=== PATIENT | male | born 1975 | race Caucasian/White ===

== ENCOUNTER 2016-07-09 12:28 | Emergency (ER) | payer SELFPAY ==
--- NOTE | 2016-07-09 14:18 | DIAGNOSTIC IMAGING REPORT ---
PROCEDURE: XR CHEST 1 VIEW INDICATION: CHEST PAIN TECHNIQUE: Portable AP view 01:25 p.m. COMPARISON: None. FINDINGS: Lungs are clear. Heart and mediastinum are normal. Thorax is normal. IMPRESSION: 1. Negative chest.
--- NOTE | 2016-07-09 14:46 | ED NURSING NOTES ---
Clinical Report - Nurses [facility] [address] [place] [address] 07/09/2016 12:29 Patient: LITZY SAUNDERS TRIAGE Triage time 1236 PM. Acuity: LEVEL 2. Chief Complaint: CHEST PAIN and DISCOMFORT and LEFT ARM PAIN. Alert. No acute distress. SEPSIS SCREEN: Sepsis Screen. Negative (no infection suspected/documented). --12:43 Marcie Simmons R.N. 12:33 07/09/16. BP: 137/92 (regular adult cuff) taken on the left arm, via an automated monitor, while sitting. HR: 106. RR: 16. O2 saturation: 98%. Pain level now: 10/06. --12:43 Marcie Simmons R.N. Weight: 106.5 kg stated. Height/Length: 76 inches Per Patient. BMI: 28.6. --12:33 Marcie Simmons R.N. Medications Marajuana daily. --12:35 Marcie Simmons R.N. Medication/allergy information source: the patient. --12:43 Marcie Simmons R.N. Allergies NKDA. --12:35 Marcie Simmons R.N. History Arrived by private vehicle. Primary physician (none). ( Pt states unsure of having CP, states initiated last evening, with feeling nausea, no vomiting, admits having burping, the CP "which relieves it" denies SOB. Pt did decided to take ASA "just in case" Here for evaluation). ( Pt also states of having some numbness on the Left arm, "might be due to snow boarding last week"). He has had nausea. No difficulty breathing, sweating episodes, vomiting, fever or cough. 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 PAST MEDICAL HX: Immunizations: up-to-date. SOCIAL HX: Never smoker. History of heavy drug use: marijuana. Recently used drugs today. No alcohol use. No infectious disease exposure. SELF HARM ASSESSMENT: A self harm assessment was performed. The patient answered "no" to the question "Do you have thoughts of harming or killing yourself?" and "Have you recently had thoughts about harming or killing others?". FALL RISK ASSESSMENT: Fall risk assessment completed. No fall risk identified. NUTRITIONAL RISK ASSESSMENT: The nutritional risk assessment revealed no deficiencies. FUNCTIONAL ASSESSMENT: Functional assessment: no impairments noted. LEARNING NEEDS ASSESSMENT: The learning needs assessment revealed no barriers. SKIN INTEGRITY ASSESSMENT: Skin integrity risk assessment completed. No skin integrity risk identified. --12:43 Marcie Simmons R.N. ADDITIONAL SURGERIES: no known surgeries. Interventions ID band on patient. --12:43 Marcie Simmons R.N. PHYSICAL ASSESSMENT Ambulatory to room. GENERAL / NEURO / PSYCH: Alert. Oriented X 4. Appears in no acute distress. HEENT: Mucous membranes are pink. RESPIRATORY: Respirations not labored. Chest nontender. Breath sounds within normal limits. CVS: Normal sinus rhythm noted. Heart sounds within normal limits. Pulses within normal limits. Capillary refill less than 2 seconds. GI / : Abdomen soft and nontender. EXTREMITIES: No lower extremity edema. SKIN: Skin is warm and dry. Normal skin turgor. --12:45 Marcie Simmons R.N. NURSING PROGRESS NOTES Cardiac rhythm: normal sinus rhythm. The initial plan of care for this patient has been created This plan of care was discussed with the patient. monitoring analyst, pulse oximeter and NIBP monitor placed on patient. Patient gowned. Two patient identifiers checked. Call light placed in reach. Side rails up x 1. Bed placed in lowest position. Brakes of bed on. Patient ready for evaluation- ED physician notified. --12:46 Marcie Simmons R.N. 12:45 07/09/16. BP: 147/85. HR: 101. RR: 15. O2 saturation: 97%. Temp: 98.1 F. Pain level now: 10/06. --12:46 Marcie Simmons R.N. EKG time: (1238 PM). EKG was performed by a tech and shown to the ED physician. Patient ID band checked for patient name, birthdate and medical record number: patient confirmed. Blood samples drawn by nurse per protocol ; labeled in presence of the patient and sent to lab: mignon tejada. --12:47 Marcie Simmons R.N. 12:42 07/09/2016 Site #1 started via IV in the left antecubital space with an 20g angiocath; one attempt. Blood drawn: rainbow set. Labeled in the presence of the patient. Saline lock flushed. --12:47 Marcie Simmons R.N. EKG time: (12:40 PM). EKG was performed by a tech and shown to the ED physician. --13:02 Michele Dodson Cardiac rhythm: normal sinus rhythm. monitoring analyst, pulse oximeter and NIBP monitor placed on patient. Reassurance given. GENERAL / NEURO / PSYCH: The patient reports anxiety. RESPIRATORY: Denies difficulty breathing. CVS: The patient reports left-sided chest pain is still present but improving and currently mild in severity and described as dull and radiating to the left arm. Denies nausea, sweating or shortness of breath. Call light placed in reach. --13:19 Marcie Simmons R.N. 13:15 07/09/16. BP: 126/66. HR: 77 (regular and normal rate). RR: 15. O2 saturation: 97% on room air. Pain level now: 0/10. --13:19 Marcie Simmons R.N. 13:53 07/09/2016 GI Cocktail * PO 30ml monisha arthur 15 --13:53 Marcie Simmons R.N. 14:30 07/09/16. BP: 117/72 (large adult cuff) taken on the left arm, via an automated monitor, while lying. HR: 72. RR: 15. O2 saturation: 100%. Temp: 98.1 F (oral). Pain level now: 0/10. --14:32 Marcie Simmons R.N. late entry - 14:00 PM. Cardiac rhythm: normal sinus rhythm. monitoring analyst, pulse oximeter and NIBP monitor placed on patient. Reassurance given. Reassessment after medication administered. He has had no adverse reaction. Overall patient status is improved- he states feels better. RESPIRATORY: Denies difficulty breathing. CVS: Denies chest pain. --14:32 Marcie Simmons R.N. 14:17 07/09/2016 GI Cocktail PO Response: no adverse reaction symptoms have improved the patient feels better. --14:32 Marcie Simmons R.N. late entry -15:12. ( Homeostasis at IV site on DC). --15:18 Manan Overton R.N. DISPOSITION / DISCHARGE 14:50 07/09/2016 Site #1 removed upon discharge. Catheter intact. Manual pressure and bandaid applied. --14:50 Marcie Simmons R.N. Cardiac rhythm: normal sinus rhythm. Condition at departure: improved and stable. The goals identified in the patient's plan of care were met. FALL RISK ASSESSMENT: Fall risk assessment completed. No fall risk identified. TRUDI COMA SCORE: [place] Coma Scale: 15- eyes open spontaneously (4); best verbal response- oriented x 4 (5); best motor response- obeys commands (6). --14:52 Marcie Simmons R.N. 14:50 07/09/16. BP: 118/91 (large adult cuff) taken on the left arm, via an automated monitor, while sitting. HR: 72 (regular). RR: 15. O2 saturation: 100%. Temp: 98.3 F (oral). Pain level now: 0/10. --14:52 Marcie Simmons R.N. 15:12 07/09/16. Departure time: 15:12. --15:12 Manan Overton R.N. Locked/Released at 07/09/2016 15:18 by Manan Overton R.N.
--- NOTE | 2016-07-09 14:46 | ED ORDER SUMMARY ---
..... 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 per protocol) (Ack 12:48 EHassan R.N.) (13:13 EHassan R.N.) Chest 1V Urgent (12:48 07/09/2016 EHassan R.N. per protocol) (Ack 12:49 RKaruga) (13:13 EHassan R.N.) Cardiac Panel Stat (12:48 07/09/2016 EHassan R.N. per protocol) (Ack 12:48 EHassan R.N.) (13:13 EHassan R.N.) Pulse oximeter (12:48 07/09/2016 EHassan R.N. per protocol) (Ack 12:48 EHassan R.N.) (13:13 EHassan R.N.) EKG - ER Stat (12:48 07/09/2016 EHassan R.N. per protocol) (Ack 12:48 EHassan R.N.) (13:01 LTapper) NPO (12:48 07/09/2016 EHassan R.N. per protocol) (Ack 12:48 EHassan R.N.) (13:13 EHassan R.N.) MEDICATION ORDERS: GI Cocktail WHITE PO 30 mL with Lidocaine Viscous Mouth/Throat 15 mL, Maalox Plus Oral 15 mL (13:37 07/09/2016 Jazmine Ryan) (13:53 EHassan R.N.) IV FLUIDS: IV Saline Lock (12:48 07/09/2016 EHassan R.N. per protocol) (13:14 EHassan R.N.) ORDER SHEET NOTES: [Electronically signed by Napoleon Last Dr. (14:55 07/09/2016)] [Electronically signed by Manan Overton R.N. (15:07/09/2016)] [Electronically locked/signed by Manan Overton R.N. (15:07/09/2016)]
--- NOTE | 2016-07-09 14:46 | ED NURSING NOTES ---
Clinical Report - Nurses [facility] [address] [place] [address] 07/09/2016 12:29 Patient: LITZY SAUNDERS TRIAGE Triage time 1236 PM. Acuity: LEVEL 2. Chief Complaint: CHEST PAIN and DISCOMFORT and LEFT ARM PAIN. Alert. No acute distress. SEPSIS SCREEN: Sepsis Screen. Negative (no infection suspected/documented). --12:43 Marcie Simmons R.N. 12:33 07/09/16. BP: 137/92 (regular adult cuff) taken on the left arm, via an automated monitor, while sitting. HR: 106. RR: 16. O2 saturation: 98%. Pain level now: 10/06. --12:43 Marcie Simmons R.N. Weight: 106.5 kg stated. Height/Length: 76 inches Per Patient. BMI: 28.6. --12:33 Marcie Simmons R.N. Medications Marajuana daily. --12:35 Marcie Simmons R.N. Medication/allergy information source: the patient. --12:43 Marcie Simmons R.N. Allergies NKDA. --12:35 Marcie Simmons R.N. History Arrived by private vehicle. Primary physician (none). ( Pt states unsure of having CP, states initiated last evening, with feeling nausea, no vomiting, admits having burping, the CP "which relieves it" denies SOB. Pt did decided to take ASA "just in case" Here for evaluation). ( Pt also states of having some numbness on the Left arm, "might be due to snow boarding last week"). He has had nausea. No difficulty breathing, sweating episodes, vomiting, fever or cough. 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 PAST MEDICAL HX: Immunizations: up-to-date. SOCIAL HX: Never smoker. History of heavy drug use: marijuana. Recently used drugs today. No alcohol use. No infectious disease exposure. SELF HARM ASSESSMENT: A self harm assessment was performed. The patient answered "no" to the question "Do you have thoughts of harming or killing yourself?" and "Have you recently had thoughts about harming or killing others?". FALL RISK ASSESSMENT: Fall risk assessment completed. No fall risk identified. NUTRITIONAL RISK ASSESSMENT: The nutritional risk assessment revealed no deficiencies. FUNCTIONAL ASSESSMENT: Functional assessment: no impairments noted. LEARNING NEEDS ASSESSMENT: The learning needs assessment revealed no barriers. SKIN INTEGRITY ASSESSMENT: Skin integrity risk assessment completed. No skin integrity risk identified. --12:43 Marcie Simmons R.N. ADDITIONAL SURGERIES: no known surgeries. Interventions ID band on patient. --12:43 Marcie Simmons R.N. PHYSICAL ASSESSMENT Ambulatory to room. GENERAL / NEURO / PSYCH: Alert. Oriented X 4. Appears in no acute distress. HEENT: Mucous membranes are pink. RESPIRATORY: Respirations not labored. Chest nontender. Breath sounds within normal limits. CVS: Normal sinus rhythm noted. Heart sounds within normal limits. Pulses within normal limits. Capillary refill less than 2 seconds. GI / : Abdomen soft and nontender. EXTREMITIES: No lower extremity edema. SKIN: Skin is warm and dry. Normal skin turgor. --12:45 Marcie Simmons R.N. NURSING PROGRESS NOTES Cardiac rhythm: normal sinus rhythm. The initial plan of care for this patient has been created This plan of care was discussed with the patient. radiation monitor, pulse oximeter and NIBP monitor placed on patient. Patient gowned. Two patient identifiers checked. Call light placed in reach. Side rails up x 1. Bed placed in lowest position. Brakes of bed on. Patient ready for evaluation- ED physician notified. --12:46 Marcie Simmons R.N. 12:45 07/09/16. BP: 147/85. HR: 101. RR: 15. O2 saturation: 97%. Temp: 98.1 F. Pain level now: 10/06. --12:46 Marcie Simmons R.N. EKG time: (1238 PM). EKG was performed by a tech and shown to the ED physician. Patient ID band checked for patient name, birthdate and medical record number: patient confirmed. Blood samples drawn by nurse per protocol ; labeled in presence of the patient and sent to lab: mignon tejada. --12:47 Marcie Simmons R.N. 12:42 07/09/2016 Site #1 started via IV in the left antecubital space with an 20g angiocath; one attempt. Blood drawn: rainbow set. Labeled in the presence of the patient. Saline lock flushed. --12:47 Marcie Simmons R.N. EKG time: (12:40 PM). EKG was performed by a tech and shown to the ED physician. --13:02 Michele Dodson Cardiac rhythm: normal sinus rhythm. radiation monitor, pulse oximeter and NIBP monitor placed on patient. Reassurance given. GENERAL / NEURO / PSYCH: The patient reports anxiety. RESPIRATORY: Denies difficulty breathing. CVS: The patient reports left-sided chest pain is still present but improving and currently mild in severity and described as dull and radiating to the left arm. Denies nausea, sweating or shortness of breath. Call light placed in reach. --13:19 Marcie Simmons R.N. 13:15 07/09/16. BP: 126/66. HR: 77 (regular and normal rate). RR: 15. O2 saturation: 97% on room air. Pain level now: 0/10. --13:19 Marcie Simmons R.N. 13:53 07/09/2016 GI Cocktail * PO 30ml monisha arthur 15 --13:53 Marcie Simmons R.N. 14:30 07/09/16. BP: 117/72 (large adult cuff) taken on the left arm, via an automated monitor, while lying. HR: 72. RR: 15. O2 saturation: 100%. Temp: 98.1 F (oral). Pain level now: 0/10. --14:32 Marcie Simmons R.N. late entry - 14:00 PM. Cardiac rhythm: normal sinus rhythm. radiation monitor, pulse oximeter and NIBP monitor placed on patient. Reassurance given. Reassessment after medication administered. He has had no adverse reaction. Overall patient status is improved- he states feels better. RESPIRATORY: Denies difficulty breathing. CVS: Denies chest pain. --14:32 Marcie Simmons R.N. 14:17 07/09/2016 GI Cocktail PO Response: no adverse reaction symptoms have improved the patient feels better. --14:32 Marcie Simmons R.N. late entry -15:12. ( Homeostasis at IV site on DC). --15:18 Manan Overton R.N. DISPOSITION / DISCHARGE 14:50 07/09/2016 Site #1 removed upon discharge. Catheter intact. Manual pressure and bandaid applied. --14:50 Marcie Simmons R.N. Cardiac rhythm: normal sinus rhythm. Condition at departure: improved and stable. The goals identified in the patient's plan of care were met. FALL RISK ASSESSMENT: Fall risk assessment completed. No fall risk identified. TRUDI COMA SCORE: [place] Coma Scale: 15- eyes open spontaneously (4); best verbal response- oriented x 4 (5); best motor response- obeys commands (6). --14:52 Marcie Simmons R.N. 14:50 07/09/16. BP: 118/91 (large adult cuff) taken on the left arm, via an automated monitor, while sitting. HR: 72 (regular). RR: 15. O2 saturation: 100%. Temp: 98.3 F (oral). Pain level now: 0/10. --14:52 Marcie Simmons R.N. 15:12 07/09/16. Departure time: 15:12. --15:12 Manan Overton R.N. Locked/Released at 07/09/2016 15:18 by Manan Overton R.N.
--- NOTE | 2016-07-09 14:46 | ED ORDER SUMMARY ---
..... 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 per protocol) (Ack 12:48 EHassan R.N.) (13:13 EHassan R.N.) Chest 1V Urgent (12:48 07/09/2016 EHassan R.N. per protocol) (Ack 12:49 RKaruga) (13:13 EHassan R.N.) Cardiac Panel Stat (12:48 07/09/2016 EHassan R.N. per protocol) (Ack 12:48 EHassan R.N.) (13:13 EHassan R.N.) Pulse oximeter (12:48 07/09/2016 EHassan R.N. per protocol) (Ack 12:48 EHassan R.N.) (13:13 EHassan R.N.) EKG - ER Stat (12:48 07/09/2016 EHassan R.N. per protocol) (Ack 12:48 EHassan R.N.) (13:01 LTapper) NPO (12:48 07/09/2016 EHassan R.N. per protocol) (Ack 12:48 EHassan R.N.) (13:13 EHassan R.N.) MEDICATION ORDERS: GI Cocktail WHITE PO 30 mL with Lidocaine Viscous Mouth/Throat 15 mL, Maalox Plus Oral 15 mL (13:37 07/09/2016 Jazmine Ryan) (13:53 EHassan R.N.) IV FLUIDS: IV Saline Lock (12:48 07/09/2016 EHassan R.N. per protocol) (13:14 EHassan R.N.) ORDER SHEET NOTES: [Electronically signed by Napoleon Lats Dr. (14:55 07/09/2016)] [Electronically signed by Manan Overton R.N. (15:07/09/2016)] [Electronically locked/signed by Manan Overton R.N. (15:07/09/2016)]
--- NOTE | 2016-07-09 14:46 | ED CLINICAL REPORT ---
Clinical Report - Physicians/Mid Levels [facility] [address] [place] [address] 07/09/2016 12:29 Patient: LITZY SAUNDERS Time Seen: 13:20; initial patient contact. Arrived- By private vehicle. Historian- patient. HISTORY OF PRESENT ILLNESS Chief Complaint: CHEST DISCOMFORT. It is described as burning and it is described as located in the central chest area and epigastric area. No radiation. At its maximum, severity described as mild. When seen in the E.D., severity described as mild. This started yesterday and is still present. It was gradual in onset. Onset during light activity. No nausea, vomiting, difficulty breathing or diaphoresis. Similar symptoms previously: Several times. Recent medical care: Not recently seen/assessed. REVIEW OF SYSTEMS No fever, chills, cough, pedal edema or calf pain. All systems otherwise negative, except as recorded above. PAST HISTORY Negative. Problems: no known problems. Surgeries: No history of previous surgery. Additional Surgeries: no known surgeries. Medications: Marajuana daily. Allergies: NKDA. SOCIAL HISTORY Never smoker. History of drug use: marijuana. No alcohol use. FAMILY HISTORY History of heart disease in multiple family members. ADDITIONAL NOTES The nursing notes have been reviewed with agreement regarding the chief complaint, PMH and patient medications and allergies. PHYSICAL EXAM Vital Signs: 07/09/2016 12:33 BP: 137/92. HR: 106. RR: 16. O2 saturation: 98%. Pain level now: 6/10. Have been reviewed. Hypertensive. Tachycardic. Respiratory rate normal. Temperature normal. Oxygen saturation normal. Appearance: Alert. Oriented X3. No acute distress. Eyes: Eyes normal inspection. ENT: Pharynx normal. Neck: No JVD. CVS: Normal heart rate and rhythm. Heart sounds normal. Respiratory: No respiratory distress. Breath sounds normal. Chest nontender. Abdomen: Soft. Mild tenderness in the epigastric area. No guarding, rebound tenderness or Box's sign present. Bowel sounds normal. No organomegaly. No mass. Back: Normal external inspection. Skin: Skin warm and dry. Normal skin color. No rash. Extremities: No calf tenderness. No lower extremity edema. Neuro: Oriented X 3. LABS, X-RAYS, AND EKG EKG: EKG time: (1240). Tachycardia (ventricular rate 107). Sinus tachycardia. Normal P waves. Normal DAVONTE. Normal QRS complex. Normal axis. Normal ST and T waves. Prolonged QTc (475). Prior EKG unavailable. The study has been interpreted contemporaneously by me. The study has been independently viewed by me. The EKG appears to be a good tracing. Interpretation time: 1240. Chest X-ray: No acute disease. Normal lung markings present. Normal heart size. Mediastinum normal. Great vessels normal. Soft tissues normal. No infiltrate. No fracture. No bony lesion present. Views: AP. Technique: good. The X-rays were independently viewed by me and interpreted contemporaneously by me. Prior films were not available for comparison. Interpretation time: 14:39. Laboratory Tests: CBC w Diff: (HETAL: 07/09/2016 12:40) ( [facility] [place] 07/09/2016 13:09) Final results Test Result Flag Units (Reference) WHITE BLOOD COUNT 9.2 K/uL (4.5-11.5) RED BLOOD COUNT 4.77 M/uL (4.50-5.90) HEMOGLOBIN 14.5 gm/dL (13.5-17.5) HEMATOCRIT 43.3 % (41.0-53.0) MEAN CELL VOLUME 91 fL (80-100) MEAN CORPUSCULAR HGB 30 pg (26-34) MEAN CORPUSCULAR HGB CONC 33 g/dL (31-37) RED CELL DISTRIBUTION WIDTH 13.1 % (11.6-14.8) PLATELET COUNT 210 K/uL (150-400) NEUTROPHIL % 62.3 % (50-75) LYMPH % 28.2 % (25-40) MONO % 7.8 % (3-14) EOSINOPHIL % 1.4 % (0-4) BASOPHIL % 0.3 % (0-2) CHEM 13 PANEL: (HETAL: 07/09/2016 12:40) ( [facility] 07/09/2016 13:31) IP Test Result Flag Units (Reference) GLUCOSE 108 mg/dL (70-110) BUN 14 mg/dL (7-18) CREATININE 1.1 mg/dL (0.6-1.3) Estimated GFR >60 mL/min Estimated GFR- >60 mL/min Note: Persistent reduction over 3 months in eGFR<60 mL/min/1.73 m2 defines CKD. Patients with eGFR values>=60 mL/min/1.73 m2 may also have CKD if evidence ofpersistent proteinuria. Additional information may be foundat www.kidney.org. SODIUM 139 mmol/L (136-145) POTASSIUM 4.0 mmol/L (3.5-5.1) CHLORIDE 101 mmol/L (98-107) CARBON DIOXIDE 29 mmol/L (21-32) CALCIUM 9.1 mg/dL (8.5-10.1) TOTAL PROTEIN 8.1 g/dL (6.4-8.2) ALBUMIN 4.1 g/dL (3.3-5.0) BILIRUBIN, TOTAL 0.5 mg/dL (0.0-1.0) ALKALINE PHOSPHATASE 54 U/L (46-116) AST (SGOT) 18 U/L (15-37) ALT (SGPT) 19 U/L (12-78) MAGNESIUM 1.6 L mg/dL (1.8-2.4) CPK 380 H U/L (24-260) TROPONIN I <0.05 ng/mL (0.00-1.5) TROPONIN REFERENCE RANGE:<0.1 NEGATIVE0.1-1.5 INDETERMINANT>1.5 POSITIVE . PROGRESS AND PROCEDURES Course of Care: GI Cocktail 30 mL composed of 15 mL viscous lidocaine and antacid PO given. CPK elevated, but pt had a fall over the weekend while snowboarding. The patient's symptoms are now gone. Disposition: Discharged home in good and improved condition. Condition: good. CLINICAL IMPRESSION Gastroesophageal reflux disease with esophagitis. INSTRUCTIONS Avoid alcohol and NSAIDS. Examples of NSAIDS include aspirin, ibuprofen (Advil) and naproxen (Aleve). Avoid spicy foods. Your Current Medications: CONTINUE TAKING THE FOLLOWING MEDICATIONS: Marajuana daily*. Prescription Medications: Zantac 150 mg: take 1 orally every 12 hours. Dispense sixty (60). No refills. Substitution is permissible. Follow-up: Follow up with your doctor in about two days. Call for an appointment. Screening today revealed the patient's blood pressure to be in the normal range. (Electronically signed by Napoleon Last Dr. 07/09/2016 14:55)
--- NOTE | 2016-07-09 15:19 | ED DISCHARGE INSTRUCTIONS ---
Patient: LITZY SAUNDERS General Instructions [facility] VisitID: [id number] [place] [address] 41y, M Registration Date/Time: 07/09/2016 Gastroesophageal reflux disease with esophagitis. INSTRUCTIONS Avoid alcohol and NSAIDS. Examples of NSAIDS include aspirin, ibuprofen (Advil) and naproxen (Aleve). Avoid spicy foods. Your Current Medications: CONTINUE TAKING THE FOLLOWING MEDICATIONS: Marajuana daily*. Prescription Medications: Zantac 150 mg: take 1 orally every 12 hours. Dispense sixty (60). No refills. Substitution is permissible. Follow-up: Follow up with your doctor in about two days. Call for an appointment. Screening today revealed the patient's blood pressure to be in the normal range. ADDITIONAL INFORMATION GERD (Adult) The esophagus is a tube that carries food from the mouth to the stomach. A valve at the lower end of the esophagus prevents stomach acid from flowing upward. If this valve does not work properly, acid from the stomach enters the esophagus. If this occurs over and over, the acid will injure the lining of the esophagus. This condition is called GERD (gastroesophageal reflux disease) or acid reflux. When stomach acid flows upward into the esophagus, it causes burning, pressure or sharp pain in the upper abdomen or mid to lower chest. The pain can spread to the neck, back, or shoulder, similar to heart pain (angina). There may be belching, an acid taste in the back of the throat, chronic cough, or sore throat or hoarseness. GERD symptoms often occur during the day after a big meal, but it can also occur at night when lying down. Smoking,as well as drinking alcohol, increases the risk of GERD. GERD is a chronic condition. Once it begins, it is often lifelong. Treatment includes changes in eating habits and the use of acid neftali medications to decrease the amount of acid in the stomach. Symptoms often improve with treatment, but if treatment is stopped, the symptoms usually return after a few months. So most persons with GERD will need to continue treatment. Home Care: Take the prescribed acid neftali medication for the full course of treatment even if you begin to feel better sooner. This medication can take up to several days to fully control your symptoms. If you cant afford the prescribed medication, you can try [id number] acid blockers, such as Pepcid AC, Tagamet, Zantac, or Aciphex. If these do not relieve your symptoms, a stronger acid-neftali can be tried, such as Prilosec OTC. You can use antacids, such as Tums, Rolaids, Mylanta, or Maalox, for pain. This will be useful the first few days after starting acid blockers when the blockers havent started working yet. Follow the directions on the label. Liquid antacids may work better than tablets. Note that antacids can interfere with absorption of certain medications. Specifically, do not take Tagamet (cimetidine), Zantac (ranitidine), or Carafate (sucralfate) within 1 hour of taking an antacid. Talk with your pharmacist if you have any questions. Limit or avoid fatty, fried, and spicy foods, as well as coffee, chocolate, mint, and foods with high acid content such as tomatoes and citrus fruit and juices (orange, grapefruit, lemon). Avoid alcohol and smoking. Dont eat large meals, especially at night. Frequent, smaller meals are best. Do not lie down right after eating. And dont eat anything 3 hours before going to bed. If you are overweight, losing weight will reduce symptoms. Women should not wear corsets or girdles because this increases pressure on the stomach and worsens reflux. If your symptoms occur during sleep, use a foam wedge to elevate your upper body (not just your head.) Or, place 4" blocks under the head of your bed. Follow Up with your doctor or as advised by our staff. Further testing may be needed. If you do not begin to improve over the next 4 days, contact your doctor. If you had an x-ray, CT scan, or ECG (electrocardiogram), it will be reviewed by a specialist. Youll be notified of any new findings that affect your care. Get Prompt Medical Attention if any of the following occur: Stomach pain gets worse or moves to the lower right abdomen (appendix area) Chest pain appears or gets worse, or spreads to the back, neck, shoulder, or arm Frequent vomiting (cant keep down liquids) Blood in the stool or vomit (red or black in color) Feeling weak or dizzy, fainting, or trouble breathing Fever of 100.4F (38C) or higher, or as directed by your healthcare provider [place] Diet A bland diet is used for patients with an upset stomach. It consists of foods that are mild and easy to digest. It is better to eat small frequent meals rather than three large meals a day. BEVERAGES OK: Fruit juices, non-caffeinated teas and coffee, non-carbonated hyman AVOID: Carbonated beverage, caffeinated tea and coffee, all alcoholic beverages BREAD OK: Refined white, wheat or rye bread, nuris or soda crackers, [place] toast, plain rolls, bagels AVOID: Whole-grain bread CEREAL OK: Refined cereals: cooked or ready to eat AVOID: Whole grain cereals and granola, or those containing bran, seeds or nuts DESSERTS OK: Peanut butter and all others except those to "avoid" AVOID: Chocolate, cocoa, coconut, popcorn, nuts, seeds, jam, marmalade FRUITS OK: Canned, cooked, frozen or fresh fruits without seeds or tough skin AVOID: Olives, skin and seeds of fruit MEATS OK: All fresh or preserved meat, fish and fowl AVOID: Any that are prepared with those spices to "avoid" CHEESE & EGGS OK: Eggs, cottage cheese, cream cheese, other cheeses AVOID: All cheeses made with those spices to "avoid" POTATOES & PASTA OK: Potato, rice, macaroni, noodles, spaghetti AVOID: None SOUPS OK: All soups without heavy seasoning AVOID: Soups made with those spices to "avoid" VEGETABLES OK: Canned, cooked, fresh or frozen mildly flavored vegetables without seeds, skins or coarse fiber AVOID: Vegetables prepared with those spices to "avoid"; skin and seeds of vegetables and those with coarse fiber SPICES OK: Salt, lemon and [place] juice, vinegar, all extracts, ulices, cinnamon, thyme, mace, allspice, paprika AVOID: [place] powder, cloves, pepper, seed spices, garlic, gravy pickles, highly seasoned salad dressings Ranitidine Hydrochloride Oral tablet What is this medicine? RANITIDINE (ra LUKE christina) is a type of antihistamine that blocks the release of stomach acid. It is used to treat stomach or intestinal ulcers. It can relieve ulcer pain and discomfort, and the heartburn from acid reflux. How should I use this medicine? Take this medicine by mouth with a glass of water. Follow the directions on the prescription label. If you only take this medicine once a day, take it at bedtime. Take your medicine at regular intervals. Do not take your medicine more often than directed. Do not stop taking except on your doctor's advice. Talk to your inspector salvage regarding the use of this medicine in children. Special care may be needed. What side effects may I notice from receiving this medicine? Side effects that you should report to your doctor or health child care cook as soon as possible: agitation, nervousness, depression, hallucinations allergic reactions like skin rash, itching or hives, swelling of the face, lips, or tongue breast enlargement in both males and females breathing problems redness, blistering, peeling or loosening of the skin, including inside the mouth unusual bleeding or bruising unusually weak or tired vomiting yellowing of the skin or eyes Side effects that usually do not require medical attention (report to your doctor or health child care cook if they continue or are bothersome): constipation or diarrhea dizziness headache nausea What may interact with this medicine? atazanavir delavirdine gefitinib glipizide ketoconazole midazolam procainamide propantheline triazolam warfarin What if I miss a dose? If you miss a dose, take it as soon as you can. If it is almost time for your next dose, take only that dose. Do not take double or extra doses. Where should I keep my medicine? Keep out of the reach of children. Store at room temperature between 15 and 30 degrees C (59 and 86 degrees F). Protect from light and moisture. Keep container tightly closed. Throw away any unused medicine after the expiration date. What should I tell my health care provider before I take this medicine? They need to know if you have any of these conditions: kidney disease liver disease porphyria an unusual or allergic reaction to ranitidine, other medicines, foods, dyes, or preservatives or trying to get breast-feeding What should I watch for while using this medicine? Tell your doctor or health child care cook if your condition does not start to get better or gets worse. You may need to take this medicine for several days as prescribed before your symptoms get better. Finish the full course of tablets prescribed, even if you feel better. Do not smoke cigarettes or drink alcohol. These increase irritation in your stomach and can lengthen the time it will take for ulcers to heal. Cigarettes and alcohol can also make acid reflux or heartburn worse. If you get black, tarry stools or vomit up what looks like coffee grounds, call your doctor or health child care cook at once. You may have a bleeding ulcer. You have been given the following additional information: GERD (Adult) Diet, [place] (Adult) Ranitidine Hydrochloride Oral tablet (Electronically signed by Napoleon Last Dr. 07/09/2016 14:55)
--- NOTE | 2016-07-09 15:19 | ED MED RECONCILIATION SUMMARY ---
Patient: LITZY SAUNDERS Medication Reconciliation Report [facility] VisitID: [id number] [address] [place] [address] 41y, M Registration Date/Time: 07/09/2016 Weight: 106.5 kg Height/Length: 76 in. BMI: 28.6 ALLERGIES: NKDA The patient's Home Medications are listed below: CONTINUE TAKING THE FOLLOWING MEDICATIONS: Marajuana daily The source(s) of the original Home Medication information: patient The following Medications were given to the patient in the Emergency Department: GI Cocktail PO 30ml maalos, lido 15, administered: 07/09/2016 1:53:00 PM The following Medications were prescribed to the patient: Zantac 150 mg: take 1 orally every 12 hours. Dispense sixty (60). No refills. Substitution is permissible. -- Napoleon Last Dr.
--- NOTE | 2016-07-09 15:19 | ED DISCHARGE INSTRUCTIONS ---
Patient: LITZY SAUNDERS General Instructions [facility] VisitID: [id number] [place] [address] 41y, M Registration Date/Time: 07/09/2016 Gastroesophageal reflux disease with esophagitis. INSTRUCTIONS Avoid alcohol and NSAIDS. Examples of NSAIDS include aspirin, ibuprofen (Advil) and naproxen (Aleve). Avoid spicy foods. Your Current Medications: CONTINUE TAKING THE FOLLOWING MEDICATIONS: Marajuana daily*. Prescription Medications: Zantac 150 mg: take 1 orally every 12 hours. Dispense sixty (60). No refills. Substitution is permissible. Follow-up: Follow up with your doctor in about two days. Call for an appointment. Screening today revealed the patient's blood pressure to be in the normal range. ADDITIONAL INFORMATION GERD (Adult) The esophagus is a tube that carries food from the mouth to the stomach. A valve at the lower end of the esophagus prevents stomach acid from flowing upward. If this valve does not work properly, acid from the stomach enters the esophagus. If this occurs over and over, the acid will injure the lining of the esophagus. This condition is called GERD (gastroesophageal reflux disease) or acid reflux. When stomach acid flows upward into the esophagus, it causes burning, pressure or sharp pain in the upper abdomen or mid to lower chest. The pain can spread to the neck, back, or shoulder, similar to heart pain (angina). There may be belching, an acid taste in the back of the throat, chronic cough, or sore throat or hoarseness. GERD symptoms often occur during the day after a big meal, but it can also occur at night when lying down. Smoking,as well as drinking alcohol, increases the risk of GERD. GERD is a chronic condition. Once it begins, it is often lifelong. Treatment includes changes in eating habits and the use of acid neftali medications to decrease the amount of acid in the stomach. Symptoms often improve with treatment, but if treatment is stopped, the symptoms usually return after a few months. So most persons with GERD will need to continue treatment. Home Care: Take the prescribed acid neftali medication for the full course of treatment even if you begin to feel better sooner. This medication can take up to several days to fully control your symptoms. If you cant afford the prescribed medication, you can try [id number] acid blockers, such as Pepcid AC, Tagamet, Zantac, or Aciphex. If these do not relieve your symptoms, a stronger acid-neftali can be tried, such as Prilosec OTC. You can use antacids, such as Tums, Rolaids, Mylanta, or Maalox, for pain. This will be useful the first few days after starting acid blockers when the blockers havent started working yet. Follow the directions on the label. Liquid antacids may work better than tablets. Note that antacids can interfere with absorption of certain medications. Specifically, do not take Tagamet (cimetidine), Zantac (ranitidine), or Carafate (sucralfate) within 1 hour of taking an antacid. Talk with your pharmacist if you have any questions. Limit or avoid fatty, fried, and spicy foods, as well as coffee, chocolate, mint, and foods with high acid content such as tomatoes and citrus fruit and juices (orange, grapefruit, lemon). Avoid alcohol and smoking. Dont eat large meals, especially at night. Frequent, smaller meals are best. Do not lie down right after eating. And dont eat anything 3 hours before going to bed. If you are overweight, losing weight will reduce symptoms. Women should not wear corsets or girdles because this increases pressure on the stomach and worsens reflux. If your symptoms occur during sleep, use a foam wedge to elevate your upper body (not just your head.) Or, place 4" blocks under the head of your bed. Follow Up with your doctor or as advised by our staff. Further testing may be needed. If you do not begin to improve over the next 4 days, contact your doctor. If you had an x-ray, CT scan, or ECG (electrocardiogram), it will be reviewed by a specialist. Youll be notified of any new findings that affect your care. Get Prompt Medical Attention if any of the following occur: Stomach pain gets worse or moves to the lower right abdomen (appendix area) Chest pain appears or gets worse, or spreads to the back, neck, shoulder, or arm Frequent vomiting (cant keep down liquids) Blood in the stool or vomit (red or black in color) Feeling weak or dizzy, fainting, or trouble breathing Fever of 100.4F (38C) or higher, or as directed by your healthcare provider [place] Diet A bland diet is used for patients with an upset stomach. It consists of foods that are mild and easy to digest. It is better to eat small frequent meals rather than three large meals a day. BEVERAGES OK: Fruit juices, non-caffeinated teas and coffee, non-carbonated hyman AVOID: Carbonated beverage, caffeinated tea and coffee, all alcoholic beverages BREAD OK: Refined white, wheat or rye bread, nuris or soda crackers, [place] toast, plain rolls, bagels AVOID: Whole-grain bread CEREAL OK: Refined cereals: cooked or ready to eat AVOID: Whole grain cereals and granola, or those containing bran, seeds or nuts DESSERTS OK: Peanut butter and all others except those to "avoid" AVOID: Chocolate, cocoa, coconut, popcorn, nuts, seeds, jam, marmalade FRUITS OK: Canned, cooked, frozen or fresh fruits without seeds or tough skin AVOID: Olives, skin and seeds of fruit MEATS OK: All fresh or preserved meat, fish and fowl AVOID: Any that are prepared with those spices to "avoid" CHEESE & EGGS OK: Eggs, cottage cheese, cream cheese, other cheeses AVOID: All cheeses made with those spices to "avoid" POTATOES & PASTA OK: Potato, rice, macaroni, noodles, spaghetti AVOID: None SOUPS OK: All soups without heavy seasoning AVOID: Soups made with those spices to "avoid" VEGETABLES OK: Canned, cooked, fresh or frozen mildly flavored vegetables without seeds, skins or coarse fiber AVOID: Vegetables prepared with those spices to "avoid"; skin and seeds of vegetables and those with coarse fiber SPICES OK: Salt, lemon and [place] juice, vinegar, all extracts, ulices, cinnamon, thyme, mace, allspice, paprika AVOID: [place] powder, cloves, pepper, seed spices, garlic, gravy pickles, highly seasoned salad dressings Ranitidine Hydrochloride Oral tablet What is this medicine? RANITIDINE (ra LUKE christina) is a type of antihistamine that blocks the release of stomach acid. It is used to treat stomach or intestinal ulcers. It can relieve ulcer pain and discomfort, and the heartburn from acid reflux. How should I use this medicine? Take this medicine by mouth with a glass of water. Follow the directions on the prescription label. If you only take this medicine once a day, take it at bedtime. Take your medicine at regular intervals. Do not take your medicine more often than directed. Do not stop taking except on your doctor's advice. Talk to your stamp mounter regarding the use of this medicine in children. Special care may be needed. What side effects may I notice from receiving this medicine? Side effects that you should report to your doctor or health health care consultant as soon as possible: agitation, nervousness, depression, hallucinations allergic reactions like skin rash, itching or hives, swelling of the face, lips, or tongue breast enlargement in both males and females breathing problems redness, blistering, peeling or loosening of the skin, including inside the mouth unusual bleeding or bruising unusually weak or tired vomiting yellowing of the skin or eyes Side effects that usually do not require medical attention (report to your doctor or health health care consultant if they continue or are bothersome): constipation or diarrhea dizziness headache nausea What may interact with this medicine? atazanavir delavirdine gefitinib glipizide ketoconazole midazolam procainamide propantheline triazolam warfarin What if I miss a dose? If you miss a dose, take it as soon as you can. If it is almost time for your next dose, take only that dose. Do not take double or extra doses. Where should I keep my medicine? Keep out of the reach of children. Store at room temperature between 15 and 30 degrees C (59 and 86 degrees F). Protect from light and moisture. Keep container tightly closed. Throw away any unused medicine after the expiration date. What should I tell my health care provider before I take this medicine? They need to know if you have any of these conditions: kidney disease liver disease porphyria an unusual or allergic reaction to ranitidine, other medicines, foods, dyes, or preservatives or trying to get breast-feeding What should I watch for while using this medicine? Tell your doctor or health health care consultant if your condition does not start to get better or gets worse. You may need to take this medicine for several days as prescribed before your symptoms get better. Finish the full course of tablets prescribed, even if you feel better. Do not smoke cigarettes or drink alcohol. These increase irritation in your stomach and can lengthen the time it will take for ulcers to heal. Cigarettes and alcohol can also make acid reflux or heartburn worse. If you get black, tarry stools or vomit up what looks like coffee grounds, call your doctor or health health care consultant at once. You may have a bleeding ulcer. You have been given the following additional information: GERD (Adult) Diet, [place] (Adult) Ranitidine Hydrochloride Oral tablet (Electronically signed by Napoleon Last Dr. 07/09/2016 14:55)
--- NOTE | 2016-07-09 15:19 | ED MAR SUMMARY ---
..... Medication Administration Record [facility] [address] [place] [address] Patient: LITZY SAUNDERS Visit ID: [id number] 41y, M Weight: 106.5 kg Height/Length: 76 in BMI: 28.6 ALLERGIES: NKDA Given 13:53 07/09/2016 Marcie Simmons R.N. Medication Administered: GI Cocktail *, Dose: 30ml maalos, lido 15 * PO. Medication Ordered: GI Cocktail WHITE PO 30 mL with Lidocaine Viscous Mouth/Throat 15 mL, Maalox Plus Oral 15 mL.
--- NOTE | 2016-07-09 15:19 | ED MAR SUMMARY ---
..... Medication Administration Record [facility] [address] [place] [address] Patient: LITZY SAUNDERS Visit ID: [id number] 41y, M Weight: 106.5 kg Height/Length: 76 in BMI: 28.6 ALLERGIES: NKDA Given 13:53 07/09/2016 Marcie Simmons R.N. Medication Administered: GI Cocktail *, Dose: 30ml maalos, lido 15 * PO. Medication Ordered: GI Cocktail WHITE PO 30 mL with Lidocaine Viscous Mouth/Throat 15 mL, Maalox Plus Oral 15 mL.
--- NOTE | 2016-07-09 15:19 | ED MED RECONCILIATION SUMMARY ---
Patient: LITZY SAUNDERS Medication Reconciliation Report [facility] VisitID: [id number] [address] [place] [address] 41y, M Registration Date/Time: 07/09/2016 Weight: 106.5 kg Height/Length: 76 in. BMI: 28.6 ALLERGIES: NKDA The patient's Home Medications are listed below: CONTINUE TAKING THE FOLLOWING MEDICATIONS: Marajuana daily The source(s) of the original Home Medication information: patient The following Medications were given to the patient in the Emergency Department: GI Cocktail PO 30ml maalos, lido 15, administered: 07/09/2016 1:53:00 PM The following Medications were prescribed to the patient: Zantac 150 mg: take 1 orally every 12 hours. Dispense sixty (60). No refills. Substitution is permissible. -- Napoleon Last Dr.
== END 2016-07-09 15:12 | disposition home or self-care (01) ==
LOC: ED SRH 12:28
DX: K21.0 Gastro-esophageal reflux disease with esophagitis (principal)
CPT/HCPCS: 90100; 90616; 90617; 92610; 92720; 95059